=== PATIENT | female | born 1945 | race Caucasian/White ===

== ENCOUNTER 2017-04-14 11:26 | Emergency (ER) | payer OTHER, MEDICAID ==
[2017-04-14 11:33] VITALS: TEMP 98.2
[2017-04-14] MEDS ORDERED: NS 1,000 ML IV ONE (11:46)
--- NOTE | 2017-04-14 11:48 | EDPHY ---
H & P Stated Complaint: got dizzy, fell,hit back of head, no LOC,R ankle pain Time Seen by Provider: 04/14/17 11:37 HPI/ROS: CHIEF COMPLAINT: Syncope, right ankle pain HISTORY OF PRESENT ILLNESS: The patient is a 71-year-old female who comes to the emergency department after syncopal episode and right ankle pain. Daughter states that she was in the kitchen and she noticed her spinning around. Daughter assumed that she was chasing the puppy. However when the daughter turned around again the patient had fallen onto the floor. The patient states that she felt lightheaded and fell. She denies loss of consciousness. She states that she bumped her head but does not have a headache, head pain or neck pain. She denies having any chest pain or shortness of breath or abdominal pain associated with her fall. She states that she has mild lateral right ankle pain. She denies any other pain or complaints. No recent fevers or illness. No history of cardiac disease. She denies urinary symptoms. Her daughter states that she does not usually complain about anything so it is hard to tell if anything is wrong with her. REVIEW OF SYSTEMS: Constitutional: denies: chills, fever, recent illness, recent injury EENTM: denies: blurred vision, double vision, nose congestion Respiratory: denies: cough, shortness of breath Cardiac: denies: chest pain, irregular heart rate, palpitations Gastrointestinal/Abdominal: denies: abdominal pain, nausea, vomiting, blood streaked stools Genitourinary: denies: dysuria, frequency, hematuria, pain Musculoskeletal: denies: joint pain, muscle pain Skin: denies: lesions, rash, jaundice, bruising Neurological: denies: headache, numbness, paresthesia, tingling, dizziness, weakness Hematologic/Lymphatic: denies: blood clots, easy bleeding, easy bruising Immunologic/allergic: denies: HIV/AIDS, transplant EXAM: GENERAL: Well-appearing, well-nourished and in no acute distress. HEAD: Atraumatic, normocephalic. No lacerations or contusions. EYES: Pupils equal round and reactive to light, extraocular movements intact, sclera anicteric, conjunctiva are normal. ENT: TMs normal, nares patent, oropharynx clear without exudates. Moist mucous membranes. NECK: No midline tenderness, no step-offs or deformities. Normal range of motion, supple without lymphadenopathy or JVD. LUNGS: Breath sounds clear to auscultation bilaterally and equal. No wheezes rales or rhonchi. HEART: Regular rate and rhythm without murmurs, rubs or gallops. ABDOMEN: Soft, nontender, normoactive bowel sounds. No guarding, no rebound. No masses appreciated. BACK: No CVA tenderness, no spinal tenderness, step-offs or deformities EXTREMITIES: Very slight swelling at the lateral aspect of the right ankle malleolus. No tenderness or deformity. NEUROLOGICAL: Cranial nerves II through XII grossly intact. Normal speech, normal gait. 5/5 strength, normal movement in all extremities, normal sensation PSYCH: Normal mood, normal affect. SKIN: Warm, dry, normal turgor, no visible rashes or lesions. Source: Patient Exam Limitations: No limitations - Personal History Current Tetanus Diphtheria and Acellular Pertussis (TDAP): Yes - Medical/Surgical History Hx Asthma: No Hx Chronic Respiratory Disease: No Hx Diabetes: No Hx Cardiac Disease: No Hx Renal Disease: No Hx Cirrhosis: No Hx Alcoholism: No Other PMH: depression - Family History Significant Family History: No pertinent family hx - Social History Smoking Status: Never smoked Alcohol Use: None Constitutional: Initial Vital Signs Temperature (C) 36.8 C 04/14/17 11:30 Heart Rate 89 04/14/17 11:30 Respiratory Rate 18 04/14/17 11:30 Blood Pressure 113/108 H 04/14/17 11:30 O2 Sat (%) 96 04/14/17 11:30 O2 Delivery Mode Room Air Allergies/Adverse Reactions: codeine Allergy (Intermediate, Verified 04/14/17 11:30) "makes my mouth tight" Home Medications: Medication Instructions Recorded FLUoxetine [PROzac] 10 mg PO 04/14/17 Medical Decision Making - Diagnostics EKG Interpretation: An EKG obtained and was read and documented in trace view. Please see trace view for full reading and report., sinus rhythm, Pac, no acute ischemic changes Imaging: Discussed imaging studies w/ can vacuum tester Radiologist ED Course/Re-evaluation: We discussed the x-ray and lab results. The patient does not think that she fainted but just lost balance. I doubt her ability to use crutches. I will consult Ortho to see if a [place] boot is appropriate. Her family thinks that she will be able to do well with this. She lives with her daughter and does not do much walking on her own. She does not use a walker or cane at baseline. 1:30 p.m. I discussed the case with Dr. Rosanne Lisa who agrees with [place] boot and allowing weight-bearing as tolerated. Patient and daughter happy with this and declines further workup. Urinalysis is unremarkable. I did offer admission because of her age and possibly syncopal event but she declines. Differential Diagnosis: Partial list of the Differential diagnosis considered include but were not limited to; syncope, presyncope, fracture, sprain and although unlikely based on the history and physical exam, I also considered arrhythmia, acute coronary disease, CVA, infection. I discussed these differential diagnoses and the plan with the patient as well as the usual and expected course. The patient understands that the diagnosis is provisional and that in medicine we are not always correct and that further workup is often warranted. Usual and customary warnings were given. All of the patient's questions were answered. The patient was instructed to return to the emergency department should the symptoms at all worsen or return, otherwise to followup with the physician as we discussed. - Data Points Laboratory Results: Laboratory Results 04/14/17 12:00 04/14/17 12:00 Medications Given: Discontinued Medications Sodium Chloride (Ns) 1,000 mls @ 0 mls/hr IV ONCE ONE; Wide Open PRN Reason: Protocol Stop: 04/14/17 11:47 Last Admin: 04/14/17 12:21 Dose: 1,000 mls Departure - Departure Disposition: Home, Routine, Self-Care Clinical Impression: Ankle fracture, lateral malleolus, closed Qualifiers: Encounter type: initial encounter Fracture alignment: nondisplaced Laterality: right Qualified Code(s): S82.64XA - Nondisplaced fracture of lateral malleolus of right fibula, initial encounter for closed fracture Condition: Fair Instructions: Ankle Fracture (ED) Additional Instructions: Your lab to ambulate as tolerated with the [place] boot. Follow up with orthopedist Referrals: NONE *PRIMARY CARE P,. [Primary Care Provider] - As per Instructions Rosanne Lisa MD [Medical Doctor] - As per Instructions
--- NOTE | 2017-04-14 11:54 | CPEKG ---
Heart Rate: 84 RR Interval: 714 P-R Interval: 172 QRSD Interval: 104 QT Interval: 384 QTC Interval: 454 P [place]: 24 QRS [place]: -24 T Wave [place]: 124 EKG Severity - ABNORMAL ECG - EKG Impression: SINUS RHYTHM EKG Impression: ATRIAL PREMATURE COMPLEX EKG Impression: PROBABLE INFERIOR INFARCT, AGE INDETERMINATE EKG Impression: ANTERIOR Q WAVES, POSSIBLY DUE TO LVH Electronically Signed By: Jimbo Kc 14-Apr-2017 12:21:32
[2017-04-14 12:07] LABS: PLATELET COUNT 214 10^3/uL (150-400)
[2017-04-14 12:16] LABS: PROTIME(PATIENT) 13.4 SEC (12.0-15.0)
[2017-04-14 13:51] VITALS: BP 139/99; PULSE 76; RESP 16; O2SAT 92
== END 2017-04-14 13:55 | disposition home or self-care (01) ==
DX: S82.64XA Nondisplaced fracture of lateral malleolus of right fibula, initial encounter for closed fracture (principal); E86.9 Volume depletion, unspecified; W01.198A Fall on same level from slipping, tripping and stumbling with subsequent striking against other object, initial encounter; Y99.8 Other external cause status; Y93.89 Activity, other specified
CPT/HCPCS: 70450; 71020; 72125; 73610; 93005; 99285; L4386; G0480